=== PATIENT | male | born 1980 | race Caucasian/White ===

== ENCOUNTER 2016-04-24 20:59 | Inpatient (IN) ==
[2016-04-24] MEDS ORDERED: METOCLOPRAMIDE 10 MG/2 ML VIAL IV STA (22:17)
[2016-04-24] MEDS ORDERED: ONDANSETRON 4 MG/2 ML VIAL IV STA (22:17)
--- NOTE | 2016-04-24 22:18 | EKG Report ---
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
[2016-04-24 22:38] LABS: Basophils % 0.1 % (0.0-0.8); Eosinophils # 0.1 10*3/uL (0.0-0.87); Eosinophils % 0.7 % (0.00-10.9); Hemoglobin 13.5 GM/DL (14.0-18.0); Immature Granulocytes % 0.1 %; Immature Granulocytes Absolute 0.01 #; Lymphocytes % 14.4 % (21.2-54.2); Mean Corpuscular HGB Conc 33.8 GM/DL (32-36); Mean Corpuscular Hemoglobin 32 PG (27-34); Mean Corpuscular Volume 95.2 FL (87-102); Mean Platelet Volume 11.7 FL (9.6-12.0); Monocytes # 0.9 10*3/uL (0.11-0.8); Neutrophils # 5.1 10*3/uL (1.4-7.4); Neutrophils % 72.7 % (38.7-73.9); Platelet Count 119 10*3/uL (130-400); Red Cell Distribution Width 12.7 % (9.3-17.3); White Blood Count 7.1 10*3/uL (4.5-13.71)
[2016-04-24] MEDS ORDERED: ONDANSETRON 4 MG/2 ML VIAL ONE (22:42)
[2016-04-24] MEDS ORDERED: METOCLOPRAMIDE 10 MG/2 ML VIAL ONE (22:42)
[2016-04-24 22:57] LABS: PT Patient Result 10.1 SECS; Partial Thromboplastin Time 27.2 SECS (0-40)
[2016-04-24 23:00] LABS: Apearance,Urine CLEAR (Clear); Bacteria,Urine Occasional /HPF (Few); Bilirubin,Urine Negative (Negative); Blood, Urine Small mg/dL (Negative); Glucose,Urine (UA) Negative (Negative); Ketones,Urine Negative (Negative); Nitrite,Urine Negative (Negative); Protein,Urine Negative; RBC,Urine <1 /HPF (0-4); Urine Color Straw (Yellow); Urine Specific Gravity 1.006 (1.001-1.035); Urine Urobilinogen < 2.0 EU/DL (0.2-1.0); WBC,Urine 4 /HPF (0-6)
[2016-04-24 23:03] LABS: Alanine Aminotransferase 10 U/L (16-61); Albumin 3.7 G/DL (3.4-5.0); Alkaline Phosphatase 52 U/L (45-117); Aspartate Amino Transferase 30 U/L (0-37); Blood Urea Nitrogen 30 MG/DL (7-18); Calcium 8.2 MG/DL (8.5-10.1); Glucose 100 MG/DL (74-106); Sodium 141 MMOL/L (136-145); Total Protein 6.2 G/DL (6.4-8.3)
[2016-04-24 23:04] LABS: Osmolality,Calculated 286.3 MOS/KG (273-304); Potassium 3.5 MMOL/L (3.5-5.1); Troponin I Only < 0.015 NG/ML (0.00-0.045)
[2016-04-24 23:05] LABS: Barbiturates Screen,Urine Negative (Negative); Benzodiazepines Screen,Urine Negative (Negative); Cannabinoid Screen,Urine Positive (Negative); Opiate Screen,Urine Negative (Negative); Phencyclidine Screen,Urine Negative (Negative)
[2016-04-24] MEDS ORDERED: SODIUM CHLORIDE 0.9% 2,000 ML IV STA (23:58)
[2016-04-25] MEDS ORDERED: ACETAMINOPHEN 325 MG TABLET PO PRN (01:21)
[2016-04-25] MEDS ORDERED: MORPHINE 2 MG/1 ML SYRINGE IV PRN (01:21)
[2016-04-25] MEDS ORDERED: ONDANSETRON 4 MG/2 ML VIAL IV PRN (01:21)
[2016-04-25] MEDS: SODIUM CHLORIDE 0.9% 1,000 ML IV SCH ×3 (01:51→17:26)
[2016-04-25] MEDS: ENOXAPARIN 40 MG/0.4 ML SYRINGE SUBCUT SCH (01:51)
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
[2016-04-25 05:26] LABS: Basophils % 0.3 % (0.0-0.8); Eosinophils # 0.1 10*3/uL (0.0-0.87); Eosinophils % 1.4 % (0.00-10.9); Hematocrit 36.4 VOL% (42.0-52.0); Immature Granulocytes % 0.2 %; Immature Granulocytes Absolute 0.01 #; Lymphocytes # 1.3 10*3/uL (1.4-4.0); Lymphocytes % 20.3 % (21.2-54.2); Mean Corpuscular Hemoglobin 32 PG (27-34); Mean Corpuscular Volume 97.1 FL (87-102); Mean Platelet Volume 11.8 FL (9.6-12.0); Monocytes # 0.8 10*3/uL (0.11-0.8); Monocytes % 12.9 % (1.7-12.7); Neutrophils % 64.9 % (38.7-73.9); Platelet Count 110 10*3/uL (130-400); Red Blood Count 3.75 10*6/uL (3.8-5.5); Red Cell Distribution Width 12.8 % (9.3-17.3); White Blood Count 6.2 10*3/uL (4.5-13.71)
[2016-04-25 06:05] LABS: Blood Urea Nitrogen 29 MG/DL (7-18); Calcium 7.9 MG/DL (8.5-10.1); Glucose 87 MG/DL (74-106); Magnesium 2.5 MG/DL (1.8-2.4); Osmolality,Calculated 292.7 MOS/KG (273-304); Potassium 3.9 MMOL/L (3.5-5.1); Sodium 145 MMOL/L (136-145); Troponin I Only < 0.015 NG/ML (0.00-0.045)
--- NOTE | 2016-04-25 07:16 | CT Report ---
CT head/brain wo con Indication: Altered metal status. CT BRAIN WITHOUT CONTRAST DLP: 1134 mGy*cm Comparison: None. Date of admission: 04/24/2016. Technique: Axial noncontrast CT images of the brain were obtained. Findings: No acute hemorrhage, mass or mass effect. Ventricles and sulci are appropriate for age. Vanegas-white junction is maintained throughout. No focal bone lesions are shown. Polypoid mucosal thickening left sphenoid air cell. Impression: No acute intracranial pathology. Left sphenoid sinusitis. PROCEDURE INTERPRETED AT [facility] DEPARTMENT OF RADIOLOGY Final Report Signed by: Nik Lopez M.D.
--- NOTE | 2016-04-25 07:34 | Ultrasound Report ---
US renal Bilateral Indication: Renal failure. Elevated creatinine. RENAL ULTRASOUND: Grayscale and color Doppler imaging the kidneys performed. Right kidney measures 103 x 51 x 51 mm. Left kidney measures 106 x 55 x 40 mm. No hydronephrosis, mass, cyst or calcification identified on either side. Color Doppler flow at both renal marine documented. Both kidneys demonstrate elevated echotexture diffusely. Impression: No evidence of urinary obstruction. Increased echotexture of the kidneys noted bilaterally, nonspecific but usually suggestive of medical renal disease. PROCEDURE INTERPRETED AT [facility] DEPARTMENT OF RADIOLOGY Final Report Signed by: Nik Lopez M.D.
--- NOTE | 2016-04-25 07:35 | XRay Report ---
XR chest 1V portable Indication: Altered metal status. Chest one view: The heart size and mediastinal contour are normal. The lungs and pleural spaces are clear. Bones are unremarkable. Impression: Negative chest. PROCEDURE INTERPRETED AT [facility] DEPARTMENT OF RADIOLOGY Final Report Signed by: Nik Lopez M.D.
[2016-04-25] MEDS: PANTOPRAZOLE 40 MG TABLET PO SCH (08:45)
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
[2016-04-26] MEDS: ENOXAPARIN 40 MG/0.4 ML SYRINGE SUBCUT SCH (02:27)
[2016-04-26] MEDS: SODIUM CHLORIDE 0.9% 1,000 ML IV SCH ×2 (03:28→08:30)
[2016-04-26 06:09] LABS: Calcium 7.9 MG/DL (8.5-10.1); Osmolality,Calculated 297.3 MOS/KG (273-304); Potassium 4.1 MMOL/L (3.5-5.1)
[2016-04-26] MEDS: PANTOPRAZOLE 40 MG TABLET PO SCH (08:28)
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
[2016-04-26] MEDS: DEXTROSE 5% 1,000 ML IV SCH (14:05)
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
--- NOTE | 2016-04-26 16:00 | XRay Report ---
XR hand 2V RT Indication: Swelling fourth finger. Right hand 2 views: X. appears to be some swelling of the middle finger adjacent to the PIP joint. The ring finger is unremarkable. No fracture, dislocation or additional soft tissue abnormality at the hand seen. Impression: Soft tissue swelling of the middle finger, third digit. PROCEDURE INTERPRETED AT [facility] DEPARTMENT OF RADIOLOGY Final Report Signed by: Nik Lopez M.D.
[2016-04-27] MEDS: ENOXAPARIN 40 MG/0.4 ML SYRINGE SUBCUT SCH (01:16)
[2016-04-27] MEDS: DEXTROSE 5% 1,000 ML IV SCH ×3 (01:16→20:04)
[2016-04-27] MEDS: PANTOPRAZOLE 40 MG TABLET PO SCH ×2 (07:57→09:21)
--- NOTE | 2016-04-27 08:45 | Nephrology Progress Note ---
Nephrology - PN: Subj Interval history: Denies SOB/pain. Urinary indices indicate intrinsic renal injury (FeUrea 58%). No renal labs this am. Ordered. Exam (PN)-Nephrology - Vital Signs Vital signs: Period Temp Pulse Resp BP Sys/Carrasco Pulse Ox Last 24 Hr 97.4 F-98.2 F 54-83 16-21 116-132/68-81 99-100 - General Appearance General appearance: well-developed, frail EENT: ATNC, PERRL, mucous membranes dry, hearing intact, vision intact Neck: no JVD, no thyromegaly Respiratory: no kyphosis, clear Cardiology: no murmurs, no rub Gastrointestinal: normoactive bowel sounds, no tenderness Integumentary: no rash, warm and dry Neurologic: no focal deficit, no asterixis, alert and oriented x3 Musculoskeletal: no deformities, no erythema Psychiatric: mood/affect appropriate, cooperative - Lab 04/25/16 05:08 04/26/16 05:07 Most recent lab results Calcium 7.9 MG/DL (8.5-10.1) L 04/26/16 05:07 Magnesium 2.5 MG/DL (1.8-2.4) H 04/25/16 05:08 Assessment and Plan (1) JOELLEN (acute kidney injury) Problem details: Most likely due to hypotensive/ischemic ATN, with preserved urinary acidification. Improving rapidly, no indication for renal replacement therapy. Free water deficit of 1.9L manifested by hypernatremia. Status: Acute Assessment and plan: 1. Continue D5W @ 100cc/hr. 2. Labs ordered. Current Visit: Yes
[2016-04-27 10:01] LABS: Albumin 3.4 G/DL (3.4-5.0); Calcium 8.7 MG/DL (8.5-10.1); Osmolality,Calculated 289.7 MOS/KG (273-304); Phosphorous 2.6 MG/DL (2.5-4.9)
--- NOTE | 2016-04-27 14:17 | Hospitalist Progress Note ---
Assessment and Plan (1) Swelling of finger of right hand Status: Acute Assessment and plan: We will have Dr. Amado look at finger. Marc prn Current Visit: Yes (2) JOELLEN (acute kidney injury) Problem details: Most likely due to hypotensive/ischemic ATN, with preserved urinary acidification. Improving rapidly, no indication for renal replacement therapy. Free water deficit of 1.9L manifested by hypernatremia. Status: Acute Assessment and plan: Continue hydration, BmP in a.m. Current Visit: Yes Hospitalist: Subjective Interval history: Patient feels better really wants to go home. Still concerned about the swelling in his finger will have orthopedics see him. Exam - Constitutional Vitals: Period Temp Pulse Resp BP Sys/Carrasco Pulse Ox Last 24 Hr 97.4 F-98.2 F 57-83 16-21 105-131/55-85 98-100 Exam: Heart Rate-[RRR] Lungs-[CTAB] GI-[+bs soft, NT] Ext-[no edema] right finger stil swollen and red Neuro motor 5 out of 5, alert and oriented 3 Psych normal mood and affect General no acute distress. Results - Labs CBC & BMP: 04/25/16 05:08 04/27/16 09:35 Lab Results: I have reviewed the past 24 hour labs
[2016-04-27] MEDS: NEOMYCIN/POLYMYXIN/BACITRACIN OINT 0.9 GM PACK TOP SCH ×2 (15:38→21:48)
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
[2016-04-28] MEDS: DEXTROSE 5% 1,000 ML IV SCH ×4 (06:07→09:22)
[2016-04-28 07:16] LABS: Albumin 2.9 G/DL (3.4-5.0); Calcium 8.2 MG/DL (8.5-10.1); Osmolality,Calculated 295.3 MOS/KG (273-304); Phosphorous 3.3 MG/DL (2.5-4.9); Potassium 4.5 MMOL/L (3.5-5.1)
--- NOTE | 2016-04-28 08:15 | Nephrology Progress Note ---
Nephrology - PN: Subj Interval history: Creatinine continues to improve. eGFR 34cc/min now with creatinine typically lagging behind true renal recovery. Hypernatremia continues reflecting free water deficit. Exam (PN)-Nephrology - Vital Signs Vital signs: Period Temp Pulse Resp BP Sys/[place] Pulse Ox Last 24 Hr 98.1 F-98.5 F 62-78 18-20 105-123/55-74 98-100 - General Appearance General appearance: well-developed, frail EENT: ATNC, PERRL, mucous membranes dry, hearing intact, vision intact Neck: no JVD, no thyromegaly Respiratory: no kyphosis, clear Cardiology: no murmurs, no edema Gastrointestinal: normoactive bowel sounds, no tenderness Integumentary: no rash, warm and dry Neurologic: no focal deficit, no asterixis, alert and oriented x3 Musculoskeletal: no deformities, no erythema - Lab 04/25/16 05:08 04/28/16 06:10 Most recent lab results Calcium 8.2 MG/DL (8.5-10.1) L 04/28/16 06:10 Phosphorus 3.3 MG/DL (2.5-4.9) 04/28/16 06:10 Magnesium 2.5 MG/DL (1.8-2.4) H 04/25/16 05:08 Assessment and Plan (1) JOELLEN (acute kidney injury) Problem details: Due to hypotensive/ischemic ATN, improving rapidly, no indication for renal replacement therapy. Free water deficit manifested by hypernatremia. Status: Acute Assessment and plan: 1. Increase D5W @ 150cc/hr. 2. Avoid nephrotoxins to include NSAIDs, aminoglycosides, IV contrast if possible during ATN recovery period, typically approx 14d. Current Visit: Yes
[2016-04-28] MEDS ORDERED: ENOXAPARIN 30 MG/0.3 ML SYRINGE SUBCUT SCH (09:00)
[2016-04-28] MEDS: PANTOPRAZOLE 40 MG TABLET PO SCH (09:18)
[2016-04-28] MEDS: NEOMYCIN/POLYMYXIN/BACITRACIN OINT 0.9 GM PACK TOP SCH (09:33)
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
[2016-04-28 11:40] VITALS: BP 115/61
== END 2016-04-28 10:50 | disposition home or self-care (01) | DRG 683 ==
LOC: N.ED 20:59 → N.EDINP 23:55 → N.2E 04-25 00:31
PROVIDERS: ADMIT Internal Medicine Geriatric Medicine; ATTEND Internal Medicine Geriatric Medicine